=== PATIENT | female | born 1970 | race American Indian/Alaskan Native ===

== ENCOUNTER 2016-12-23 18:04 | Emergency (ER) | payer OTHER ==
[2016-12-23] MEDS: NS 1,000 ML IV ONE (18:31)
[2016-12-23] MEDS: ONDANSETRON 4 MG/2 ML VIAL IVP ONE (18:32)
[2016-12-23 18:37] LABS: % IMMATURE GRANULYOCYTES 0.5 % (0.0-1.1); ABSOLUTE IMMATURE GRANULOCYTES 0.05 10^3/uL (0.00-0.10); ADD DIFF? NO; ADD MORPH? NO; ADD SCAN? NO; ATYPICAL LYMPHOCYTE FLAG 0 (0-99); FRAGMENT RBC FLAG 0 (0-99); HEMATOCRIT 42.3 % (38.0-47.0); HEMOGLOBIN 14.5 g/dL (12.6-16.3); LEFT SHIFT FLG 0 (0-99); LIPEMIA HEMOLYSIS FLAG 90 (0-99); MEAN CELL HEMOGLOBIN 28.6 pg (27.9-34.1); MEAN CELL HEMOGLOBIN CONCENTR. 34.3 g/dL (32.4-36.7); MEAN CELL VOLUME 83.4 fL (81.5-99.8); MEAN PLATELET VOLUME 9.2 fL (8.7-11.7); PLATELET CLUMPS FLAG 10 (0-99); PLATELET COUNT 306 10^3/uL (150-400); RED BLOOD CELL COUNT 5.07 10^6/uL (4.18-5.33); RED CELL DISTRIBUTION WIDTH 13.8 % (11.5-15.2)
[2016-12-23] MEDS: HYDROmorphONE/DILAUDID 1 MG/ML SYR IVP ONE (18:39)
[2016-12-23 18:53] LABS: ALANINE AMINOTRANSFERASE 47 IU/L (9-52); ALBUMIN 4.2 g/dL (3.5-5.0); ALKALINE PHOSPHATASE 225 IU/L (38-126); ANION GAP 12 mEq/L (8-16); ASPARTATE AMINOTRANSFERASE 26 IU/L (14-46); BILIRUBIN,TOTAL 0.9 mg/dL (0.1-1.4); BILIRUBIN-CONJUGATED 0.4 mg/dL (0.0-0.5); BILIRUBIN-UNCONJUGATED 0.5 mg/dL (0.0-1.1); CALCIUM 9.6 mg/dL (8.5-10.4); CARBON DIOXIDE 26 mEq/l (22-31); CHLORIDE 98 mEq/L (97-110); CREATININE 0.8 mg/dL (0.6-1.0); GLOMERULAR FILTRATION RATE > 60; GLUCOSE 217 mg/dL (70-100); POTASSIUM 4.1 mEq/L (3.5-5.2); SODIUM 136 mEq/L (134-144); TOTAL PROTEIN 7.3 g/dL (6.3-8.2)
[2016-12-23] MEDS ORDERED: IOPAMIDOL (ISOVUE-300) 100 ML BTL IV ONE (19:10)
[2016-12-23 19:22] LABS: COLOR YELLOW; LEUKOCYTE ESTERASE,URINE NEGATIVE (NEGATIVE); NITRITE,URINE NEGATIVE (NEGATIVE)
[2016-12-23 19:27] VITALS: O2SAT 94
--- NOTE | 2016-12-23 19:47 | EDPHY ---
H & P Stated Complaint: Intermittent LLQ x 1 mo;constipation;sent by PCP for eval Time Seen by Provider: 12/23/16 18:17 HPI/ROS: CHIEF COMPLAINT: The left lower quadrant pain HISTORY OF PRESENT ILLNESS: Patient is a 46-year-old female who comes to the emergency department complaining of his lower quadrant pain that began about 1 month ago. It has been intermittent. She has not had any nausea, vomiting or diarrhea. No blood in her stool. No fever. She denies or urinary symptoms. She has never had kidney stones. She has no flank pain. REVIEW OF SYSTEMS: Constitutional: denies: chills, fever, recent illness, recent injury EENTM: denies: blurred vision, double vision, nose congestion Respiratory: denies: cough, shortness of breath Cardiac: denies: chest pain, irregular heart rate, lightheadedness, palpitations Gastrointestinal/Abdominal: See HPI Genitourinary: denies: dysuria, frequency, hematuria, pain Musculoskeletal: denies: joint pain, muscle pain Skin: denies: lesions, rash, jaundice, bruising Neurological: denies: headache, numbness, paresthesia, tingling, dizziness, weakness Hematologic/Lymphatic: denies: blood clots, easy bleeding, easy bruising Immunologic/allergic: denies: HIV/AIDS, transplant EXAM: GENERAL: Well-appearing, well-nourished and in no acute distress. HEAD: Atraumatic, normocephalic. EYES: Pupils equal round and reactive to light, extraocular movements intact, sclera anicteric, conjunctiva are normal. ENT: TMs normal, nares patent, oropharynx clear without exudates. Moist mucous membranes. NECK: Normal range of motion, supple without lymphadenopathy or JVD. LUNGS: Breath sounds clear to auscultation bilaterally and equal. No wheezes rales or rhonchi. HEART: Regular rate and rhythm without murmurs, rubs or gallops. ABDOMEN: Moderate left lower quadrant pain, mild tenderness, BACK: No CVA tenderness, no spinal tenderness, step-offs or deformities EXTREMITIES: Normal range of motion, no pitting or edema. No clubbing or cyanosis. NEUROLOGICAL: Cranial nerves II through XII grossly intact. Normal speech, normal gait. 5/5 strength, normal movement in all extremities, normal sensation PSYCH: Normal mood, normal affect. SKIN: Warm, dry, normal turgor, no visible rashes or lesions. Source: Patient Exam Limitations: No limitations - Personal History LMP (Females 10-55): Hysterectomy Current Tetanus Diphtheria and Acellular Pertussis (TDAP): Yes Tetanus Vaccine Date: 2014 - Medical/Surgical History Hx Asthma: Yes Hx Chronic Respiratory Disease: No Hx Diabetes: Yes Hx Cardiac Disease: No Hx Renal Disease: No Hx Cirrhosis: No Hx Alcoholism: No Hx HIV/AIDS: No Hx Splenectomy or Spleen Trauma: No Other PMH: htn, epilepsy, tubal, full hyst, knee, appy, shoulder. chronic pain - Family History Significant Family History: No pertinent family hx - Social History Smoking Status: Former smoker Alcohol Use: Sober Drug Use: None Constitutional: Initial Vital Signs Temperature (C) 36.6 C 12/23/16 18:10 Heart Rate 74 12/23/16 18:10 Respiratory Rate 18 12/23/16 18:10 Blood Pressure 144/60 H 12/23/16 18:10 O2 Sat (%) 96 12/23/16 18:10 O2 Delivery Mode Room Air Allergies/Adverse Reactions: bismuth subsalicylate [From Pepto-Bismol] Allergy (Intermediate, Verified 18:10) anxiety,hallucinations metoclopramide HCl [From Reglan] Allergy (Intermediate, Verified 12/23/16 18:10) Anxiety, hallucinations ondansetron HCl [From Zofran] Allergy (Intermediate, Verified 12/23/16 18:10) anxiety, hallucinations prochlorperazine edisylate [From Compazine] Allergy (Intermediate, Verified 18:10) anxiety, hallucinations prochlorperazine maleate [From Compazine] Allergy (Intermediate, Verified 18:10) anxiety, hallucinations promethazine HCl [From Phenergan] Allergy (Intermediate, Verified 12/23/16 18:10 ) anxiety, hallucinations hydrocodone [Hydrocodone] Allergy (Mild, Verified 12/23/16 18:10) Rash methylphenidate HCl [From Ritalin] Allergy (Mild, Verified 12/23/16 18:10) ANXIETY,UNPLEASANT Home Medications: Medication Instructions Recorded Albuterol [Proventil Inhaler HFA 2 puffs IH DAILY PRN 08/11/14 (RX)] Citalopram Hydrobromide [celeXA 10 30 mg PO HS 08/11/14 MG] Hydrochlorothiazide [HCTZ (RX)] 25 mg PO DAILY 08/11/14 Metoprolol Succinate 50 mg PO DAILY 08/11/14 Venlafaxine Xr [Effexor Xr] 150 mg PO DAILY 08/11/14 lamoTRIgine [LamICTAL 100 MG (RX)] 150 mg PO BID 08/11/14 Seroquel 12/24/14 oxyCODONE/APAP 5/325 [Percocet 1 tab PO Q2-3PRN PRN #20 tab 12/24/14 5/325] Dicyclomine [Bentyl 20 MG (*)] 20 mg PO QID #60 tab 12/23/16 SUMAtriptan [Imitrex 25 MG (*)] 12/23/16 Medical Decision Making - Diagnostics Imaging: Results: CT scan of the abdomen and pelvis was obtained. The results of the study are sigmoid spasm, no sign of inflammation or diverticulitis. The study was read by Dr. Franklin. I viewed the images myself on the PACS system. ED Course/Re-evaluation: Patient has sign of spasm on CT scan. Abdominal exam is benign. She is not febrile and has a normal white blood cell count. She is well appearing. I will start her on Bentyl and treat her with a dose of Toradol here in the emergency department. She agrees with this plan. I will also have her follow up with Gastroenterology. If she continues to have symptoms 8 suggested she have a colonoscopy. Differential Diagnosis: Partial list of the Differential diagnosis considered include but were not limited to; diverticulitis, sigmoid spasming, ovarian cyst, kidney stone, urinary tract infection and although unlikely based on the history and physical exam, I also considered appendicitis, volvulus,. I discussed these differential diagnoses and the plan with the patient as well as the usual and expected course. The patient understands that the diagnosis is provisional and that in medicine we are not always correct and that further workup is often warranted. Usual and customary warnings were given. All of the patient's questions were answered. The patient was instructed to return to the emergency department should the symptoms at all worsen or return, otherwise to followup with the physician as we discussed. - Data Points Laboratory Results: Laboratory Results 12/23/16 18:34 03/27/17 18:34 12/23/16 12/23/16 12/23/16 19:10 18:34 18:34 WBC RBC Hgb Hct MCV MCH MCHC RDW Plt Count MPV Neut % (Auto) Lymph % (Auto) [place] % (Auto) Eos % (Auto) Baso % (Auto) Nucleat RBC Rel Count Absolute Neuts (auto) Absolute Lymphs (auto) Absolute Monos (auto) Absolute Eos (auto) Absolute Basos (auto) Absolute Nucleated RBC Immature Gran % Immature Gran # Sodium 136 mEq/L mEq/L (134-144) Potassium 4.1 mEq/L mEq/L (3.5-5.2) Chloride 98 mEq/L mEq/L (97-110) Carbon Dioxide 26 mEq/l mEq/l (22-31) Anion Gap 12 mEq/L mEq/L (8-16) BUN 17 mg/dL mg/dL (7-23) Creatinine 0.8 mg/dL mg/dL (0.6-1.0) Estimated GFR > 60 Glucose 217 mg/dL H mg/dL (70-100) Calcium 9.6 mg/dL mg/dL (8.5-10.4) Total Bilirubin 0.9 mg/dL mg/dL (0.1-1.4) Conjugated Bilirubin 0.4 mg/dL mg/dL (0.0-0.5) Unconjugated Bilirubin 0.5 mg/dL mg/dL (0.0-1.1) AST 26 IU/L IU/L (14-46) ALT 47 IU/L IU/L (9-52) Alkaline Phosphatase 225 IU/L H IU/L (38-126) Total Protein 7.3 g/dL g/dL (6.3-8.2) Albumin 4.2 g/dL g/dL (3.5-5.0) Lipase 266.0 IU/L IU/L (23-300) Beta HCG, Qual NEGATIVE Urine Color YELLOW Urine Appearance CLEAR Urine pH 6.0 (5.0-7.5) Ur Specific [place] 1.023 (1.002-1.030) Urine Protein NEGATIVE (NEGATIVE) Urine Ketones NEGATIVE (NEGATIVE) Urine Blood NEGATIVE (NEGATIVE) Urine Nitrate NEGATIVE (NEGATIVE) Urine Bilirubin NEGATIVE (NEGATIVE) Urine Urobilinogen NEGATIVE EU EU (0.2-1.0) Ur Leukocyte Esterase NEGATIVE (NEGATIVE) Ur Culture Indicated? NOT INDICATED (NI) Urine Glucose NEGATIVE (NEGATIVE) 12/23/16 18:34 WBC 9.94 10^3/uL H 10^3/uL (3.80-9.50) RBC 5.07 10^6/uL 10^6/uL (4.18-5.33) Hgb 14.5 g/dL g/dL (12.6-16.3) Hct 42.3 % % (38.0-47.0) MCV 83.4 fL fL (81.5-99.8) MCH 28.6 pg pg (27.9-34.1) MCHC 34.3 g/dL g/dL (32.4-36.7) RDW 13.8 % % (11.5-15.2) Plt Count 306 10^3/uL 10^3/uL (150-400) MPV 9.2 fL fL (8.7-11.7) Neut % (Auto) 57.5 % % (39.3-74.2) Lymph % (Auto) 34.4 % % (15.0-45.0) [place] % (Auto) 7.0 % % (4.5-13.0) Eos % (Auto) 0.1 % L % (0.6-7.6) Baso % (Auto) 0.5 % % (0.3-1.7) Nucleat RBC Rel Count 0.0 % % (0.0-0.2) Absolute Neuts (auto) 5.71 10^3/uL 10^3/uL (1.70-6.50) Absolute Lymphs (auto) 3.42 10^3/uL H 10^3/uL (1.00-3.00) Absolute Monos (auto) 0.70 10^3/uL 10^3/uL (0.30-0.80) Absolute Eos (auto) 0.01 10^3/uL L 10^3/uL (0.03-0.40) Absolute Basos (auto) 0.05 10^3/uL 10^3/uL (0.02-0.10) Absolute Nucleated RBC 0.00 10^3/uL 10^3/uL (0-0.01) Immature Gran % 0.5 % % (0.0-1.1) Immature Gran # 0.05 10^3/uL 10^3/uL (0.00-0.10) Sodium Potassium Chloride Carbon Dioxide Anion Gap BUN Creatinine Estimated GFR Glucose Calcium Total Bilirubin Conjugated Bilirubin Unconjugated Bilirubin AST ALT Alkaline Phosphatase Total Protein Albumin Lipase Beta HCG, Qual Urine Color Urine Appearance Urine pH Ur Specific [place] Urine Protein Urine Ketones Urine Blood Urine Nitrate Urine Bilirubin Urine Urobilinogen Ur Leukocyte Esterase Ur Culture Indicated? Urine Glucose Medications Given: Discontinued Medications Dicyclomine HCl (Bentyl) 20 mg PO EDNOW ONE Stop: 12/23/16 19:47 Last Admin: 12/23/16 20:03 Dose: 20 mg Hydromorphone HCl (Dilaudid) 0.5 mg IVP EDNOW ONE Stop: 12/23/16 18:37 Last Admin: 12/23/16 18:39 Dose: 0.5 mg Sodium Chloride (Ns) 1,000 mls @ 0 mls/hr IV ONCE ONE PRN Reason: Wide Open Stop: 12/23/16 18:18 Last Admin: 12/23/16 18:31 Dose: 1,000 mls Ketorolac Tromethamine (Toradol) 30 mg IVP EDNOW ONE Stop: 12/23/16 19:39 Last Admin: 12/23/16 19:50 Dose: 30 mg Ondansetron HCl (Zofran) 4 mg IVP EDNOW ONE Stop: 12/23/16 18:18 Last Admin: 12/23/16 18:32 Dose: Not Given Departure - Departure Disposition: Home, Routine, Self-Care Clinical Impression: Spasm of bowel Condition: Fair Instructions: Abdominal Pain (ED) Referrals: Kelsi Bryan MD [Primary Care Provider] - As per Instructions Manjit Vanessa MD [Medical Doctor] - As per Instructions Prescriptions: Dicyclomine [Bentyl 20 MG (*)] 20 mg PO QID #60 tab
[2016-12-23] MEDS: KETOROLAC 30 MG/1 ML SDV IVP ONE (19:50)
[2016-12-23] MEDS ORDERED: DICYCLOMINE 10 MG CAP ONE (19:59)
[2016-12-23] MEDS: DICYCLOMINE 20 MG TAB PO ONE (20:03)
[2016-12-23 20:25] VITALS: BP 153/87; PULSE 94; RESP 18; TEMP 98.1
== END 2016-12-23 20:15 | disposition home or self-care (01) ==
DX: K63.89 Other specified diseases of intestine (principal); I10 Essential (primary) hypertension; J45.909 Unspecified asthma, uncomplicated; E11.9 Type 2 diabetes mellitus without complications; Z87.891 Personal history of nicotine dependence
CPT/HCPCS: 74177; 96374; 96375; 99285; J1170; J1885; Q9967